=== PATIENT | male | born 1990 | race Caucasian/White ===

== ENCOUNTER 2020-02-02 12:22 | Emergency (ER) | payer SELFPAY ==
[~2020-02-02] VITALS: Ht 180.3 cm; Wt 75.0 kg
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
--- NOTE | 2020-02-02 12:52 | NUR ---
JAYLIN MICHAUD AT BEDSIDE. PT REFUSING PAIN MEDS AT THIS TIME
[2020-02-02] MEDS ORDERED: SODIUM CHLORIDE FLUSH 10ML SYR IVF ONE (13:00)
[2020-02-02] MEDS ORDERED: PLEASE ENTER ALLERGIES MC SCH (13:00)
--- NOTE | 2020-02-02 13:28 | NUR ---
PT BACK FROM IMAGING, RESTING IN BED, CALL LIGHT IN REACH
--- NOTE | 2020-02-02 14:37 | NUR ---
BACT FROM CT, RESTING IN BED.
[2020-02-02] MEDS ORDERED: OXYcodone/APAP 5/325MG TABLET PO ONE (15:00)
--- NOTE | 2020-02-02 15:01 | NUR ---
JAYLIN MICHAUD AT BEDSIDE TO DISCUSS POC
[2020-02-02] MEDS ORDERED: OXYcodone/APAP 5/325MG TABLET ONE (15:05)
--- NOTE | 2020-02-02 15:59 | NUR ---
DISCHARGE INSTRUCTIONS REVIEWED
[2020-02-02 16:17] VITALS: BP 152/82
== END 2020-02-02 16:28 | disposition home or self-care (01) ==
LOC: ED 12:56
DX: S92.121A Displaced fracture of body of right talus, initial encounter for closed fracture (principal); S92.251A Displaced fracture of navicular [scaphoid] of right foot, initial encounter for closed fracture; S83.92XA Sprain of unspecified site of left knee, initial encounter; V29.40XA Motorcycle driver injured in collision with unspecified motor vehicles in traffic accident, initial encounter; Y93.89 Activity, other specified; Y92.89 Other specified places as the place of occurrence of the external cause; Y99.8 Other external cause status
CPT/HCPCS: 29505; 99285